=== PATIENT | female | born 1965 | race African-American/Black ===

== ENCOUNTER 2016-04-20 19:35 | Observation (INO) | payer OTHER ==
--- NOTE | 2016-04-20 19:48 | ER Document Report ---
ED Medical Screen (RME) - General Stated Complaint: BLOODY STOOL Notes: 50 yo female c/o rectal bleeding x 2 days. dark red with BM. + lower abdominal pain. + nausea, no vomiting. +hx/o HTN, but no meds x 5 yrs due to lack of insurance. BP noted to be elevated + headache. chest heaviness intermittantly. denies chest pain presently - Related Data Allergies/Adverse Reactions: Sulfa (Sulfonamide Antibiotics) Allergy (Verified 04/20/16 19:47) Physical Exam - Vital signs Vitals: Temp Pulse Resp BP Pulse Ox 98.2 F 83 16 232/111 H 100 04/20/16 19:42 04/20/16 19:42 04/20/16 19:42 04/20/16 19:42 04/20/16 19:42 Course - Vital Signs Vital signs: Temp Pulse Resp BP Pulse Ox 98.2 F 83 16 232/111 H 100 04/20/16 19:42 04/20/16 19:42 04/20/16 19:42 04/20/16 19:42 04/20/16 19:42
[2016-04-20 20:22] LABS: ABSOLUTE BASOPHILS # (AUTO) 0.1 10^3/uL (0.0-0.2); ABSOLUTE EOSINOPHILS # (AUTO) 0.4 10^3/uL (0.0-0.6); ABSOLUTE LYMPHOCYTES (AUTO) 3.5 10^3/uL (0.5-4.7); ABSOLUTE MONOCYTES (AUTO) 0.7 10^3/uL (0.1-1.4); BASOPHILS % (AUTO) 0.9 % (0-2); EOSINOPHILS % (AUTO) 4.7 % (0-6); HEMATOCRIT 39.5 % (36.0-47.0); HEMOGLOBIN 13.2 g/dL (12.0-15.5); HGB HCT DIFFERENCE 0.1; LYMPHOCYTES % (AUTO) 46.4 % (13-45); MEAN CORPUSCULAR HEMOGLOBIN 27.9 pg (27.0-33.4); MEAN CORPUSCULAR HGB CONC 33.3 g/dL (32.0-36.0); MEAN CORPUSCULAR VOLUME 84 fl (80-97); MONOCYTES % (AUTO) 8.9 % (3-13); RED BLOOD COUNT 4.71 10^6/uL (3.72-5.28); RED CELL DISTRIBUTION WIDTH 15.5 % (11.5-14.0); SEGMENTED NEUTROPHILS % (AUTO) 39.1 % (42-78); WHITE BLOOD COUNT 7.6 10^3/uL (4.0-10.5)
[2016-04-20 20:41] LABS: ALANINE AMINOTRANSFERASE 31 U/L (9-52); ALBUMIN 4.1 g/dL (3.5-5.0); ALKALINE PHOSPHATASE 111 U/L (38-126); ANION GAP 11 (5-19); ASPARTATE AMINO TRANSFERASE 26 U/L (14-36); BILIRUBIN,TOTAL 0.4 mg/dL (0.2-1.3); BLOOD UREA NITROGEN 19 mg/dL (7-20); CALCIUM 10.1 mg/dL (8.4-10.2); CARBON DIOXIDE 27 mmol/L (22-30); CHLORIDE 104 mmol/L (98-107); CREATININE RESULT 1.24 mg/dL (0.52-1.25); GLUCOSE 93 mg/dL (75-110); POTASSIUM 3.7 mmol/L (3.6-5.0); SODIUM 141.9 mmol/L (137-145); TOTAL PROTEIN 7.8 g/dL (6.3-8.2)
[2016-04-21] MEDS ORDERED: AMLODIPINE BESYLATE 10 MG TABLET PO ONE (01:03)
[2016-04-21] MEDS ORDERED: HYDROCHLOROTHIAZIDE 25 MG TABLET PO ONE (01:03)
--- NOTE | 2016-04-21 01:35 | ER Document Report ---
ED General - General Chief Complaint: Bloody Stools Stated Complaint: BLOODY STOOL Notes: Patient is a 50-year-old female presents with complaint of rectal bleeding. Patient says that over last 3 days she's had blood in her stool. She says initially her stool was red but now it is more stool and less blood. She's had some lower abdominal cramping. She says she's had the lower abdominal cramping since having her several years ago and is unsure if this cramping is the same or different. Patient has never had a colonoscopy. Patient also mentions that she has a history of hypertension. She is on no medications for 5 years. Recently she says that she's felt tired, dizzy, has had some intermittent headaches, has had some intermittent chest pain. TRAVEL OUTSIDE OF THE [place] IN LAST 30 DAYS: No - Related Data Allergies/Adverse Reactions: Sulfa (Sulfonamide Antibiotics) Allergy (Verified 04/20/16 19:47) Home Medications: Current Home Medications No Home Medications 04/21/16 [History] Past Medical History - Social History Smoking Status: Never Smoker Chew tobacco use (# tins/day): No Frequency of alcohol use: Rare Drug Abuse: None Family History: Reviewed & Not Pertinent Patient has suicidal ideation: No Patient has homicidal ideation: No Renal/ Medical History: Denies: Hx Peritoneal Dialysis Review of Systems - Review of Systems Notes: My Normal Review Basic REVIEW OF SYSTEMS: CONSTITUTIONAL : Denies fever, chills, or sweats. Denies recent illness. EENT: Denies eye, ear, throat, or mouth pain or symptoms. Denies nasal or sinus congestion. CARDIOVASCULAR: Intermittent chest pain. RESPIRATORY: Denies cough, cold, or chest congestion. Denies shortness of breath, difficulty breathing, or wheezing. GASTROINTESTINAL: Denies abdominal pain. Bloody stools GENITOURINARY: Denies difficulty urinating, painful urination, burning, frequency, or blood in urine. MUSCULOSKELETAL: Denies neck or back pain or joint pain or swelling. SKIN: Denies rash or skin lesions. HEMATOLOGIC : Denies easy bruising or bleeding. NEUROLOGICAL: Denies altered mental status or loss of consciousness. Has a headache. Denies weakness or paralysis or loss of use of either side. Denies problems with gait or speech. Denies sensory or motor loss. ALL OTHER SYSTEMS REVIEWED AND NEGATIVE. Physical Exam - Vital signs Vitals: Temp Pulse Resp BP Pulse Ox 98.2 F 83 16 232/111 H 100 04/20/16 19:42 04/20/16 19:42 04/20/16 19:42 04/20/16 19:42 04/20/16 19:42 - Notes Notes: General Appearance: Well nourished, alert, cooperative, no acute distress, no obvious discomfort. Well-appearing Vitals: reviewed, See vital signs table. Head: no swelling or tenderness to the head Eyes: PERRL, EOMI, Conjuctiva clear Mouth: No decreasd moisture Neck: Supple, no neck tenderness, No thyromegaly Lungs: No wheezing, No rales, No rhonci, No accessory muscle use, good air exchange bilaterally. Heart: Normal rate, Regular rythm, No murmur, no rub Abdomen: Normal BS, soft, No rigidity, No abdominal tenderness, No guarding, no rebound, no abdominal masses, no organomegaly Rectal: No gross blood. Light brown stool. No hemorrhoids. Extremities: strength 5/5 in all extremities, good pulses in all extremities, no swelling or tenderness in the extremities, no edema. Skin: warm, dry, appropriate color, no rash Neuro: speech clear, oriented x 3, normal affect, responds appropriately to questions. Course - Vital Signs Vital signs: Temp Pulse Resp BP Pulse Ox 97.7 F 79 18 137/83 H 97 04/22/16 04:01 04/22/16 04:01 04/22/16 04:01 04/22/16 04:01 04/22/16 04:01 - Laboratory Result Diagrams: 04/20/16 20:10 04/20/16 20:10 Laboratory results interpreted by me: 04/20/16 04/20/16 20:10 20:10 RDW 15.5 H Seg Neutrophils % 39.1 L Lymphocytes % 46.4 H Est GFR ( Amer) 55 L Est GFR (Non-Af Amer) 45 L - EKG Interpretation by Me Additional EKG results interpreted by me: 04/21/16 03:19 EKG is reviewed and interpreted by me. EKG shows normal sinus rhythm with rate of [address] segment elevation or depression. Some T-wave inversions in the lateral leads. This most likely is related to left ventricular hypertrophy. There is no old EKG available for comparison. - Transfer of Care Notes: 04/22/16 05:30 My main concern is the patient's continued hypertension. Also she has symptoms of the hypertension. I'm less concerned with her rectal bleeding. She has had decrease in amount of blood in her stool over last 3 days. She does have guaiac positive stool. Her hemoglobin is negative. She has minimal pain in her lower abdomen. Skin is negative. She will need a recent outpatient colonoscopy to further evaluate this. I did discuss this with her and she understands. My concern is of her hypertension. She is having some symptoms so she with a. I did give her some medications which has slowly decrease her blood pressure. Her blood pressure just prior to be calling the hospitalist was 190 systolic. This is a decrease with approximate 40 points systolically. I did discuss case with the hospital start reason the patient for hypertensive urgency. Dictation of this chart was performed using voice recognition software; therefore, there may be some unintended grammatical errors. Discharge - Discharge Clinical Impression: Hypertensive urgency, Hematochezia Condition: Stable Disposition: ADMITTED OBSERVATION Admitting Provider: Hospitalist Unit Admitted: Telemetry
[2016-04-21] MEDS ORDERED: NITROGLYCERIN 2% OINTMENT 1 GM PACKET TP ONE (04:21)
[2016-04-21] MEDS ORDERED: HYDRALAZINE HCL INJ/PF 20 MG/1 ML SDV IV PRN (05:57)
[2016-04-21] MEDS ORDERED: ONDANSETRON HCL INJ/PF 4 MG/2 ML SDV IV PRN (05:58)
[2016-04-21] MEDS ORDERED: ACETAMINOPHEN 325 MG TABLET PO PRN (05:58)
[2016-04-21] MEDS ORDERED: LACTULOSE SYRUP 20 GM/30 ML UDCUP PO ONE (06:15)
--- NOTE | 2016-04-21 06:41 | PDOC H&P ---
History of Present Illness Admission Date/PCP: 04/21/16 06:05 Patient complains of: Fatigue and shortness of breath History of Present Illness: MAULIK MCBRIDE is a 50 year old female with a past medical history of hypertension, obesity and constipation who had been her usual state of health until having an episode of bright red blood per rectum accompanied by hard stool prompting her to seek evaluation emergency room where she's found to have heme-negative stool, a normal hemoglobin and constipation on CT imaging. More notably however is her blood pressure of 239/122 and a history of fatigue and shortness of breath for several weeks. Patient has been off blood pressure medication over the last 5 years following the loss of health insurance. She receives hydrochlorothiazide, Nitropaste and Norvasc resulting in a blood pressure in the 140s systolic range she feels lightheaded and is placed in supine with removal of Nitropaste blood pressures reevaluated with a systolic pressure 160 and resolution of symptoms. she is referred to the hospitalist for observation. She denies new medications shortness of breath or chest pain currently. Past Medical History Cardiac Medical History: Reports: Hypertension Endocrine Medical History: Reports: Obesity Past Surgical History Past Surgical History: Reports: None Social History Information Source: Patient Lives with: Family Smoking Status: Never Smoker Hx Recreational Drug Use: No Drugs: None Hx Prescription Drug Abuse: No - Advance Directive Resuscitation Status: Full Code Family History Family History: CAD, Hypertension Parental Family History Reviewed: Yes Children Family History Reviewed: Yes Sibling(s) Family History Reviewed.: Yes Medication/Allergy Allergies/Adverse Reactions: Sulfa (Sulfonamide Antibiotics) Allergy (Verified 04/20/16 19:47) Review of Systems Constitutional: PRESENT: as per HPI, fatigue Eyes: ABSENT: visual disturbances Ears: ABSENT: hearing changes Cardiovascular: ABSENT: chest pain, dyspnea on exertion, edema, orthropnea, palpitations Respiratory: ABSENT: cough, hemoptysis Gastrointestinal: ABSENT: abdominal pain, constipation, diarrhea, hematemesis, hematochezia, nausea, vomiting Genitourinary: ABSENT: dysuria, hematuria Integumentary: ABSENT: rash, wounds Neurological: ABSENT: abnormal gait, abnormal speech, confusion, dizziness, focal weakness, syncope Psychiatric: ABSENT: anxiety, depression, homidical ideation, suicidal ideation Endocrine: ABSENT: cold intolerance, heat intolerance, polydipsia, polyuria Hematologic/Lymphatic: ABSENT: easy bleeding, easy bruising Physical Exam Vital Signs: Temp Pulse Resp BP Pulse Ox 98.2 F 83 16 232/111 H 100 04/20/16 19:42 04/20/16 19:42 04/20/16 19:42 04/20/16 19:42 04/20/16 19:42 General appearance: PRESENT: no acute distress, morbidly obese, well-developed, well-nourished Head exam: PRESENT: atraumatic, normocephalic Eye exam: PRESENT: conjunctiva pink, EOMI, PERRLA. ABSENT: scleral icterus Ear exam: PRESENT: normal external ear exam Mouth exam: PRESENT: moist, tongue midline Neck exam: ABSENT: carotid bruit, JVD, lymphadenopathy, thyromegaly Respiratory exam: PRESENT: clear to auscultation manny. ABSENT: rales, rhonchi, wheezes Cardiovascular exam: PRESENT: RRR. ABSENT: diastolic murmur, rubs, systolic murmur Pulses: PRESENT: normal dorsalis pedis pul Vascular exam: PRESENT: normal capillary refill GI/Abdominal exam: PRESENT: normal bowel sounds, soft. ABSENT: distended, guarding, mass, organolmegaly, rebound, tenderness Rectal exam: PRESENT: deferred Extremities exam: PRESENT: full ROM. ABSENT: calf tenderness, clubbing, pedal edema Neurological exam: PRESENT: alert, awake, oriented to person, oriented to place , oriented to time, oriented to situation, CN II-XII grossly intact. ABSENT: motor sensory deficit Psychiatric exam: PRESENT: appropriate affect, normal mood. ABSENT: homicidal ideation, suicidal ideation Skin exam: PRESENT: dry, intact, warm. ABSENT: cyanosis, rash Results Impressions: Abdomen/Pelvis CT 04/21/16 00:00 IMPRESSION: No acute or suspicious findings. Assessment & Plan - Diagnosis (1) Hypertensive urgency Is this a current diagnosis for this admission?: YesPlan: Continue Norvasc 10 mg by mouth daily, hydrochlorothiazide initiated in the emergency room. Patient states she has labile blood pressure which had been historically difficult to control. Given obesity I'm concerned for thyroid disorder will check TSH. (2) Constipation Is this a current diagnosis for this admission?: YesPlan: Lactulose and Colace (3) Internal hemorrhoid, bleeding Is this a current diagnosis for this admission?: YesPlan: Stool softener consider outpatient GI follow-up - Time Time Spent: 30 to 50 Minutes
[2016-04-21] MEDS: HEPARIN SOD (PORCINE) 5,000 UNIT/ML 1 ML SYRINGE SUBCUT SCH ×3 (06:57→21:04)
--- NOTE | 2016-04-21 08:26 | EKG REPORT ---
SEVERITY:- ABNORMAL ECG - SINUS RHYTHM PROBABLE LEFT ATRIAL ABNORMALITY LVH WITH SECONDARY REPOLARIZATION ABNORMALITY : Confirmed by: Efe Fierro MD 21-Apr-2016 08:26:19
[2016-04-21] MEDS: DOCUSATE SODIUM 100 MG CAPSULE PO SCH ×2 (09:11→17:11)
[2016-04-21] MEDS: AMLODIPINE BESYLATE 10 MG TABLET PO SCH (09:11)
[2016-04-21] MEDS ORDERED: KETOROLAC TROMETHAMINE INJ/PF 30 MG/1 ML SDV IV PRN ×2 (10:43→10:47)
--- NOTE | 2016-04-21 11:56 | PDOC PROGRESS REPORT ---
Subjective Progress Note for:: 04/21/16 Subjective:: Patient is seen on morning rounds. She is resting in bed. She complains of a headache. She states the nurse just fever Tylenol. She denies any nausea, abdominal pain or diarrhea. She denies any chest pain, shortness breath or dyspnea. She denies any fevers or chills. Rest of the review of systems are negative. Physical Exam Vital Signs: Temp Pulse Resp BP Pulse Ox 98.3 F 81 16 156/85 H 97 04/21/16 08:30 04/21/16 08:30 04/21/16 08:30 04/21/16 08:30 04/21/16 08:30 Intake & Output 04/20/16 04/21/16 04/22/16 06:59 06:59 06:59 Weight 105.5 kg 105.5 kg General appearance: PRESENT: no acute distress, obese, well-developed, well- nourished Head exam: PRESENT: atraumatic, normocephalic Eye exam: PRESENT: conjunctiva pink, EOMI, PERRLA. ABSENT: scleral icterus Ear exam: PRESENT: normal external ear exam Mouth exam: PRESENT: moist, tongue midline Neck exam: ABSENT: carotid bruit, JVD, lymphadenopathy, thyromegaly Respiratory exam: PRESENT: clear to auscultation manny. ABSENT: rales, rhonchi, wheezes Cardiovascular exam: PRESENT: RRR. ABSENT: diastolic murmur, rubs, systolic murmur Pulses: PRESENT: normal dorsalis pedis pul GI/Abdominal exam: PRESENT: normal bowel sounds, soft. ABSENT: distended, guarding, mass, organolmegaly, rebound, tenderness Rectal exam: PRESENT: deferred Extremities exam: PRESENT: full ROM. ABSENT: calf tenderness, clubbing, pedal edema Neurological exam: PRESENT: alert, awake, oriented to person, oriented to place , oriented to time, oriented to situation, CN II-XII grossly intact. ABSENT: motor sensory deficit Psychiatric exam: PRESENT: appropriate affect, normal mood. ABSENT: homicidal ideation, suicidal ideation Skin exam: PRESENT: dry, intact, warm. ABSENT: cyanosis, rash Results Impressions: Abdomen/Pelvis CT 04/21/16 00:00 IMPRESSION: No acute or suspicious findings. Assessment & Plan - Diagnosis (1) Hypertensive urgency Is this a current diagnosis for this admission?: YesPlan: Patient was started on amlodipine 10 mg blood pressure much improved. (2) Internal hemorrhoid, bleeding Is this a current diagnosis for this admission?: YesPlan: Patient has long history of chronic constipation. She has not had a colonoscopy. She has no bleeding at the present time (3) Constipation Qualifiers: Constipation type: chronic idiopathic constipation Qualified Code(s) : K59.04 - Chronic idiopathic constipation Is this a current diagnosis for this admission?: YesPlan: Continue colace and lactulose. (4) Morbid obesity with BMI of 40.0-44.9, adult Plan: Counseled on need for weight reduction through diet and exercise - Time Time Spent with patient: 25-34 minutes Critical Time spent with patient: 15-24 minutes Medications reviewed and adjusted accordingly: Yes Anticipated discharge: Home
[2016-04-21] MEDS: BENAZEPRIL HCL 20 MG TABLET PO SCH (21:04)
[2016-04-21] MEDS ORDERED: ZOLPIDEM TARTRATE 5 MG TABLET PO PRN (22:00)
[2016-04-22] MEDS: HEPARIN SOD (PORCINE) 5,000 UNIT/ML 1 ML SYRINGE SUBCUT SCH (05:04)
[2016-04-22] MEDS: BENAZEPRIL HCL 20 MG TABLET PO SCH (09:17)
[2016-04-22] MEDS: AMLODIPINE BESYLATE 10 MG TABLET PO SCH (09:18)
[2016-04-22] MEDS: DOCUSATE SODIUM 100 MG CAPSULE PO SCH (09:19)
--- NOTE | 2016-04-22 11:26 | PDOC DISCHARGE SUMMARY ---
General - Admit/Disc Date/PCP Admission Date/Primary Care Provider: 04/21/16 05:58 Discharge Date: 04/22/16 - Discharge Diagnosis (1) Hypertensive urgency Is this a current diagnosis for this admission?: YesSummary: Blood pressure maintained under 150 mmhg. Counseled on importance of taking medications. Follow up with [facility] (2) Internal hemorrhoid, bleeding Is this a current diagnosis for this admission?: YesSummary: No further bleeding since admission. Long history of chronic constipation (3) Constipation Is this a current diagnosis for this admission?: YesSummary: High fiber diet. Miralax daily (4) Morbid obesity with BMI of 40.0-44.9, adult Is this a current diagnosis for this admission?: YesSummary: Counseled on diet and exercise for weight loss - Additional Information Resuscitation Status: Full Code Discharge Diet: Regular Discharge Activity: Activity As Tolerated Home Medications: Acetaminophen [Tylenol 325 mg Tablet] 650 mg PO Q4HP PRN tablet 04/22/16 Benazepril HCl [Lotensin 20 mg Tablet] 20 mg PO Q12 #60 tablet 04/22/16 History of Present Illness Patient complains of: Fatigue and shortness of breath, History of Present Illness: MAULIK MCBRIDE is a 50 year old female who presents to [facility] ED on the evening of 04/20/2016, complaining of shortness of breath and fatigue over the last 2 weeks. She also notes she has had nicole blood after defecation on 2 different episodes. She does have a history of chronic constipation and internal hemorrhoids. It was noted upon presentation to the ER her blood pressure was extremely elevated at 246/112. She does have a history of essential hypertension she stopped taking medication 5 years ago when she lost her health insurance. She has not had routine healthcare in several years. She denied any nausea, vomiting, or diarrhea. She did complain of a headache which had been ongoing over the last 2 weeks as well. She underwent full workup by the ER provider including CT of the abdomen and pelvis which was unremarkable. She was referred to the hospitalist service for admission for hypertensive urgency. Hospital Course Hospital Course: Patient was admitted to the telemetry floor on observation status. She had blood pressure medication initiated which brought her pressure down to the 140s to 160s systolic. She had no further episodes of rectal bleeding overnight. This morning she complains of some dizziness but denies headache. Orthostatic vitals signs were obtained which show blood pressure sitting 136/63, standing 151/70. She was counseled on importance of being compliant with medications. Medications are available on [employer] $4 list. Patient will follow-up with [facility]. Physical Exam Vital Signs: Temp Pulse Resp BP Pulse Ox 98 F 92 16 151/81 H 99 04/22/16 10:40 04/22/16 10:40 04/22/16 10:40 04/22/16 10:40 04/22/16 10:40 Intake & Output 04/21/16 04/22/16 04/23/16 06:59 06:59 06:59 Intake Total 905 Output Total 1600 Balance -695 Weight 105.5 kg 105.8 kg General appearance: PRESENT: no acute distress, morbidly obese, well-developed, well-nourished Head exam: PRESENT: atraumatic, normocephalic Eye exam: PRESENT: conjunctiva pink, EOMI, PERRLA. ABSENT: scleral icterus Ear exam: PRESENT: normal external ear exam Mouth exam: PRESENT: moist, tongue midline Neck exam: ABSENT: carotid bruit, JVD, lymphadenopathy, thyromegaly Respiratory exam: PRESENT: clear to auscultation manny. ABSENT: rales, rhonchi, wheezes Cardiovascular exam: PRESENT: RRR. ABSENT: diastolic murmur, rubs, systolic murmur Pulses: PRESENT: normal dorsalis pedis pul Vascular exam: PRESENT: normal capillary refill GI/Abdominal exam: PRESENT: normal bowel sounds, soft. ABSENT: distended, guarding, mass, organolmegaly, rebound, tenderness Rectal exam: PRESENT: deferred Extremities exam: PRESENT: full ROM. ABSENT: calf tenderness, clubbing, pedal edema Musculoskeletal exam: PRESENT: ambulatory, normal inspection Neurological exam: PRESENT: alert, awake, oriented to person, oriented to place , oriented to time, oriented to situation, CN II-XII grossly intact. ABSENT: motor sensory deficit Psychiatric exam: PRESENT: appropriate affect, normal mood. ABSENT: homicidal ideation, suicidal ideation Skin exam: PRESENT: dry, intact, warm. ABSENT: cyanosis, rash Results Impressions: Abdomen/Pelvis CT 04/21/16 00:00 IMPRESSION: No acute or suspicious findings. Qualifiers PATEINT BEING DISCHARGED WITH ANY OF THE FOLLOWING DIAGNOSIS?: No Plan Discharge Plan: Home with family Time Spent: Less than 30 Minutes
[2016-04-22 12:58] VITALS: BP 172/93
== END 2016-04-22 12:50 | disposition home or self-care (01) ==
LOC: ER 19:35 → EH 04-21 05:58 → UNDOADMOB 04-21 06:05 → EH 04-21 06:05 → 4S 04-21 08:21
PROVIDERS: ADMIT Internal Medicine; ATTEND Internal Medicine
DX: I16.0 Hypertensive urgency (principal); I10 Essential (primary) hypertension; K64.8 Other hemorrhoids; K59.00 Constipation, unspecified; E66.01 Morbid (severe) obesity due to excess calories; Z68.41 Body mass index [BMI] 40.0-44.9, adult
CPT/HCPCS: 93005; 99285; 36415 ×2; 84443; 85025; 82272; 80053; 84484; 74178; 93010; J1644 ×2; J0360; J1885

== ENCOUNTER → 2016-04-25 | Outpatient (CLI) | payer OTHER ==
[2016-04-26 08:32] LABS: ABSOLUTE EOSINOPHILS # (AUTO) 0.2 10^3/uL (0.0-0.6); ABSOLUTE LYMPHOCYTES (AUTO) 2.3 10^3/uL (0.5-4.7); ABSOLUTE MONOCYTES (AUTO) 0.5 10^3/uL (0.1-1.4); ABSOLUTE NEUT (AUTO) 1.6 10^3/uL (1.7-8.2); BASOPHILS % (AUTO) 1.1 % (0-2); EOSINOPHILS % (AUTO) 4.8 % (0-6); HEMATOCRIT 40.1 % (36.0-47.0); HEMOGLOBIN 13.8 g/dL (12.0-15.5); HGB HCT DIFFERENCE 1.3; LYMPHOCYTES % (AUTO) 48.8 % (13-45); MEAN CORPUSCULAR HEMOGLOBIN 28.6 pg (27.0-33.4); MEAN CORPUSCULAR HGB CONC 34.5 g/dL (32.0-36.0); MEAN CORPUSCULAR VOLUME 83 fl (80-97); MONOCYTES % (AUTO) 11.6 % (3-13); RED BLOOD COUNT 4.84 10^6/uL (3.72-5.28); RED CELL DISTRIBUTION WIDTH 15.4 % (11.5-14.0); SEGMENTED NEUTROPHILS % (AUTO) 33.7 % (42-78); WHITE BLOOD COUNT 4.6 10^3/uL (4.0-10.5)
[2016-04-26 08:56] LABS: ALANINE AMINOTRANSFERASE 30 U/L (9-52); ALBUMIN 4.4 g/dL (3.5-5.0); ALKALINE PHOSPHATASE 109 U/L (38-126); ANION GAP 14 (5-19); ASPARTATE AMINO TRANSFERASE 27 U/L (14-36); BILIRUBIN,TOTAL 0.6 mg/dL (0.2-1.3); BLOOD UREA NITROGEN 23 mg/dL (7-20); CALCIUM 10.4 mg/dL (8.4-10.2); CARBON DIOXIDE 26 mmol/L (22-30); CHLORIDE 101 mmol/L (98-107); CHOLESTEROL 243.29 mg/dL (0-200); Direct HDL 64 mg/dL (>40); GLUCOSE 96 mg/dL (75-110); POTASSIUM 4.1 mmol/L (3.6-5.0); SODIUM 140.7 mmol/L (137-145); TOTAL PROTEIN 8.2 g/dL (6.3-8.2); TRIGLYCERIDES 103 mg/dL (<150)
[2016-04-26 09:06] LABS: DIRECT LDL 139 mg/dL (<100)
== END ==
LOC: OD 14:10
DX: K62.5 Hemorrhage of anus and rectum (principal)
CPT/HCPCS: 36415; 80053; 80061; 82306; 83036; 84443; 85025

== ENCOUNTER 2018-04-06 12:16 | Emergency (ER) | payer BC, MEDICAID ==
--- NOTE | 2018-04-06 12:51 | ER Document Report ---
ED Medical Screen (RME) - General Chief Complaint: Dizziness Stated Complaint: DIZZINESS Time Seen by Provider: 04/06/18 12:49 Primary Care Provider: MAURA FAN [Primary Care Provider] - Follow up as needed Mode of Arrival: Ambulatory Information source: Patient Notes: This is a 52-year-old female who presents to the emergency room with acute vertigo. Patient states she was home at the time when she experienced sudden onset of acute spinning. She states that the spinning has stopped and she is just dizzy at this point. Patient does give a history of episodes of "falling out" (3 times in the past 2 months). She is followed by [facility] and had a CT of the head yesterday (not in this hospital) as well as a recent Holter monitor. TRAVEL OUTSIDE OF THE [place] IN LAST 30 DAYS: No - Related Data Allergies/Adverse Reactions: Sulfa (Sulfonamide Antibiotics) Allergy (Verified 04/06/18 12:34) Past Medical History - Past Medical History Cardiac Medical History: Reports: Hx Hypertension Renal/ Medical History: Denies: Hx Peritoneal Dialysis Physical Exam - Vital signs Vitals: Temp Pulse Resp BP Pulse Ox 98.2 F 91 16 156/88 H 100 04/06/18 12:34 04/06/18 12:34 04/06/18 12:34 04/06/18 12:34 04/06/18 12:34 Course - Vital Signs Vital signs: Temp Pulse Resp BP Pulse Ox 98.2 F 91 16 156/88 H 100 04/06/18 12:34 04/06/18 12:34 04/06/18 12:34 04/06/18 12:34 04/06/18 12:34 Doctor's Discharge - Discharge Referrals: MAURA FAN [Primary Care Provider] - Follow up as needed
[2018-04-06 13:40] LABS: ABSOLUTE BASOPHILS # (AUTO) 0.1 10^3/uL (0.0-0.2); ABSOLUTE EOSINOPHILS # (AUTO) 0.4 10^3/uL (0.0-0.6); ABSOLUTE LYMPHOCYTES (AUTO) 3.4 10^3/uL (0.5-4.7); ABSOLUTE MONOCYTES (AUTO) 0.4 10^3/uL (0.1-1.4); ABSOLUTE NEUT (AUTO) 2.9 10^3/uL (1.7-8.2); EOSINOPHILS % (AUTO) 5.6 % (0-6); HEMATOCRIT 42.9 % (36.0-47.0); HEMOGLOBIN 15.1 g/dL (12.0-15.5); LYMPHOCYTES % (AUTO) 47.4 % (13-45); MEAN CORPUSCULAR HGB CONC 35.1 g/dL (32.0-36.0); MEAN CORPUSCULAR VOLUME 85 fl (80-97); MONOCYTES % (AUTO) 6.2 % (3-13); PLATELET COUNT 463 10^3/uL (150-450); RED BLOOD COUNT 5.03 10^6/uL (3.72-5.28); RED CELL DISTRIBUTION WIDTH 13.7 % (11.5-14.0); SEGMENTED NEUTROPHILS % (AUTO) 39.8 % (42-78); TOTAL CELLS COUNTED % (AUTO) 100 %; WHITE BLOOD COUNT 7.2 10^3/uL (4.0-10.5)
[2018-04-06 14:08] LABS: ALANINE AMINOTRANSFERASE 30 U/L (9-52); ALBUMIN 4.8 g/dL (3.5-5.0); ALKALINE PHOSPHATASE 99 U/L (38-126); ANION GAP 12 (5-19); ASPARTATE AMINO TRANSFERASE 36 U/L (14-36); BILIRUBIN,DIRECT 0.3 mg/dL (0.0-0.4); BILIRUBIN,TOTAL 0.5 mg/dL (0.2-1.3); BLOOD UREA NITROGEN 19 mg/dL (7-20); CALCIUM 10.1 mg/dL (8.4-10.2); CARBON DIOXIDE 28 mmol/L (22-30); CHLORIDE 103 mmol/L (98-107); GLUCOSE 124 mg/dL (75-110); SODIUM 143.4 mmol/L (137-145); TOTAL PROTEIN 8.7 g/dL (6.3-8.2)
[2018-04-06] MEDS ORDERED: MECLIZINE HCL 25 MG TABLET PO ONE (15:27)
--- NOTE | 2018-04-06 16:13 | ER Document Report ---
ED General - General Chief Complaint: Dizziness Stated Complaint: DIZZINESS Time Seen by Provider: 04/06/18 12:49 Primary Care Provider: JAZZ JASSO NP [COMMUNITY BASED STAFF] - Follow up in 3-5 days Mode of Arrival: Ambulatory Notes: Patient is a 52-year-old female who presents emergency department with a chief complaint of dizziness. She stated that she felt dizzy this morning and felt like the room was spinning. She states that she has had 3 falls in the past 2 months and has seen her primary care provider in regards to this issue. She had a CT scan of the head yesterday by her primary care and also had a Holter monitor placed. She states she does not know the results of her CT or her Holter monitor. She denies any weakness, numbness, or tingling. She denies any facial droop. TRAVEL OUTSIDE OF THE [place] IN LAST 30 DAYS: No - Related Data Allergies/Adverse Reactions: Sulfa (Sulfonamide Antibiotics) Allergy (Verified 04/06/18 12:34) Past Medical History - General Information source: Patient - Social History Smoking Status: Unknown if Ever Smoked Family History: Reviewed & Not Pertinent Patient has suicidal ideation: No Patient has homicidal ideation: No - Past Medical History Cardiac Medical History: Reports: Hx Hypertension Renal/ Medical History: Denies: Hx Peritoneal Dialysis Review of Systems - Review of Systems Notes: REVIEW OF SYSTEMS: CONSTITUTIONAL : Denies recent illness. Denies recent unintentional weight loss. Denies fever, chills, or sweats. EENT: See HPI. CARDIOVASCULAR: Denies chest pain. RESPIRATORY: Denies shortness of breath, cough, congestion, difficulty breathing, or wheezing. GASTROINTESTINAL: Denies nausea, vomiting, and diarrhea. Denies abdominal pain. Denies constipation. GENITOURINARY: Denies difficulty urinating, burning, blood in urine, urgency or frequency. MUSCULOSKELETAL: Denies neck and back pain. Denies joint pain or swelling. SKIN: Denies rash, itchiness, or lesions HEMATOLOGIC : Denies easy bruising or bleeding. LYMPHATIC: Denies swollen, painful, enlarged glands. NEUROLOGICAL: See HPI. PSYCHIATRIC: Denies stress, anxiety, alteration in sleep patterns, or depression. All other systems reviewed and negative. Physical Exam - Vital signs Vitals: Temp Pulse Resp BP Pulse Ox 98.2 F 91 16 156/88 H 100 04/06/18 12:34 04/06/18 12:34 04/06/18 12:34 04/06/18 12:34 04/06/18 12:34 - Notes Notes: PHYSICAL EXAMINATION: GENERAL: Appears well, healthy, well-nourished, no acute distress. HEAD: Normocephalic, atraumatic. EYES: PERRL, conjunctiva normal, all extraocular movements intact, sclera nonicteric, mild nystagmus noted (associated dizziness with nystagmus). ENT: Moist mucous membranes. Cerumen impaction in right external auditory canal. Cerumen noted to left external auditory canal, but able to visualize tempanic membrane. NECK: Supple, no noticeable swelling, redness, rash. Normal range of motion. LUNGS: Equal breath sounds bilaterally and clear to auscultation. No wheezes rales or rhonchi. CARDIOVASCULAR: S1-S2, regular rate, regular rhythm. Radial pulses 2+, normal. ABDOMEN: Normoactive bowel sounds. Soft, nontender, no guarding, no rebound tenderness, and no masses palpated. EXTREMITIES: Normal strength and range of motion, no pitting or edema. No cyanosis. NEUROLOGICAL: Moves all extremities upon command. Strength 5/5 in all ext remities. PSYCH: Normal mood, normal affect. SKIN: Warm, dry. No rash, lesions, ulcerations noted. Normal skin turgor. Course - Re-evaluation Re-evalutation: 04/06/18 16:15 The patient states that the meclizine has not helped. Her labs are all normal. I suspect she is having benign paroxysmal positional vertigo. The CT of her head that was done by her primary care provider did not show evidence of sinusitis, acute stroke, or any other etiology at this time. She does have some nystagmus noted on exam, with associated dizziness. Other cranial nerves are intact. 04/06/18 16:37 The patient was unsure as to which way the room was spinning when she had her episode of vertigo. The Audrey's maneuver was to her right side. She tolerated the procedure well. If she does not have relief of her symptoms, the other side will be done. 04/06/18 17:15 Patient states she feels better after the Audrey's maneuver and has a little bit of dizziness, but not as much as she had before. She also has a cerumen impaction noted to her right ear. I was able to get a significant amount out of her right ear using a curette, but not all of it. Colase will be placed and she will place peroxide to the right ear. She also has some edema and pain the area. She will be started on ciprodex. Verbal discharge instructions were given to the patient. They verbalized understanding. They are stable for discharge. - Vital Signs Vital signs: Temp Pulse Resp BP Pulse Ox 98.0 F 81 16 155/90 H 99 04/06/18 17:50 04/06/18 17:50 04/06/18 17:50 04/06/18 17:50 04/06/18 17:50 - Laboratory Result Diagrams: 04/06/18 13:05 04/06/18 13:05 Laboratory results interpreted by me: 04/06/18 04/06/18 13:05 13:05 Plt Count 463 H Seg Neutrophils % 39.8 L Lymphocytes % 47.4 H Est GFR (Non-Af Amer) 55 L Glucose 124 H Total Protein 8.7 H Discharge - Discharge Clinical Impression: Benign paroxysmal positional vertigo Qualifiers: Laterality: right Qualified Code(s): H81.11 - Benign paroxysmal vertigo, right ear Cerumen impaction Qualifiers: Laterality: right Qualified Code(s): H61.21 - Impacted cerumen, right ear Otitis externa Qualifiers: Otitis externa type: noninfectious Noninfectious otitis externa type: other type Chronicity: acute Laterality: right Qualified Code(s): H60.591 - Other noninfective acute otitis externa, right ear Condition: Stable Disposition: HOME, SELF-CARE Instructions: Dizziness ([facility]), Vertigo ([facility]) Additional Instructions: You were seen today in the emergency department for dizziness. The Audrey's maneuver was performed to help you with your dizziness. If you continue to have symptoms, may return to the emergency department or see your primary care provider. You may continue to have some dizziness but it should get better within the next couple of days. You also have a wax buildup in your right ear. A medication called Colace was put in the area to help soften your earwax. When you get home, place peroxide in your ear and let it sit for 10 minutes to help soften the earwax. After it is done, let the peroxide drain and clean the outer ear with a washcloth. You have been given Flonase, medication to help with inflammation in your nose. Please place 1 spray to each nostril twice a day. He also been given a prescription for Zyrtec, medication to help with your allergies. Take 1 tablet every day. You have been given antibiotic and steroid eardrops for your right ear. Place 4 drops in the right ear twice a day for 7 days. If you fall again, develop weakness, numbness, and tingling, or have any symptoms that are worrisome to you, please return to the emergency department. Prescriptions: Cetirizine HCl [Zyrtec 10 mg Tablet] 1 tab PO DAILY #30 tablet Fluticasone Propionate [Flonase Nasal Grant 50 Mcg/Grant 16 gm] 1 spray NASL Q12 #1 inhaler Referrals: JAZZ JASSO NP [COMMUNITY BASED STAFF] - Follow up in 3-5 days
[2018-04-06] MEDS ORDERED: DOCUSATE SODIUM 100 MG CAPSULE RT_EAR ONE (16:24)
[2018-04-06] MEDS ORDERED: CIPROFLOXACIN HCL/DEXAMETH OTIC DROP 7.5 ML AD ONE (17:39)
[2018-04-06 17:53] VITALS: BP 155/90
== END 2018-04-06 17:53 | disposition home or self-care (01) ==
LOC: ER 12:16
DX: H81.11 Benign paroxysmal vertigo, right ear (principal); H60.591 Other noninfective acute otitis externa, right ear; H61.23 Impacted cerumen, bilateral; I10 Essential (primary) hypertension; Z88.2 Allergy status to sulfonamides
CPT/HCPCS: 99284; 36415; 85025; 80053; J3490

== ENCOUNTER 2019-09-02 09:59 | Day surgery (SDC) | payer BC ==
[2019-08-29 10:14] LABS: APPEARANCE,URINE CLEAR; BILIRUBIN,URINE NEGATIVE (NEGATIVE); COLOR,URINE YELLOW; GLUCOSE, URINE NEGATIVE (NEGATIVE); KETONES,URINE NEGATIVE (NEGATIVE); LEUKOCYTE ESTERASE,URINE NEGATIVE (NEGATIVE); NITRITE,URINE NEGATIVE (NEGATIVE); PROTEIN,URINE NEGATIVE (NEGATIVE); URINE SPECIFIC GRAVITY 1.009
[2019-08-29 10:15] LABS: HEMATOCRIT 46.4 % (36.0-47.0); MEAN CORPUSCULAR HEMOGLOBIN 30.2 pg (27.0-33.4); MEAN CORPUSCULAR HGB CONC 34.5 g/dL (32.0-36.0); MEAN CORPUSCULAR VOLUME 88 fl (80-97); PLATELET COUNT 367 10^3/uL (150-450); RED BLOOD COUNT 5.29 10^6/uL (3.72-5.28); RED CELL DISTRIBUTION WIDTH 13.9 % (11.5-14.0)
[2019-08-29 10:49] LABS: ALBUMIN 4.5 g/dL (3.5-5.0); ALKALINE PHOSPHATASE 90 U/L (38-126); ANION GAP 10 (5-19); ASPARTATE AMINO TRANSFERASE 37 U/L (14-36); BILIRUBIN,DIRECT 0.1 mg/dL (0.0-0.4); BILIRUBIN,TOTAL 0.6 mg/dL (0.2-1.3); BLOOD UREA NITROGEN 25 mg/dL (7-20); CALCIUM 10.4 mg/dL (8.4-10.2); CARBON DIOXIDE 25 mmol/L (22-30); CHLORIDE 104 mmol/L (98-107); GLUCOSE 131 mg/dL (75-110); POTASSIUM 3.9 mmol/L (3.6-5.0); TOTAL PROTEIN 8.1 g/dL (6.3-8.2)
[~2019-09-02 09:59] MED LIST: CEFAZOLIN 1 GM/D5W RTU 1 GM/50 ML RTUPB IV PRN; DEXAMETHASONE SOD PHOSPHATE INJ 4 MG/1 ML VIAL ONE; FENTANYL CITRATE INJ/PF 100 MCG/2 ML AMPUL ONE; MIDAZOLAM 2 MG/2 ML INJ ONE; ONDANSETRON HCL INJ/PF 4 MG/2 ML SDV ONE; PROPOFOL INJ 200 MG/20 ML VIAL IV ONE; SUCCINYLCHOLINE CHLORIDE INJ 200 MG/10 ML VIAL ONE
[2019-09-02] MEDS ORDERED: CEFAZOLIN 1 GM/D5W RTU 1 GM/50 ML RTUPB IV ONE (10:42)
[2019-09-02] MEDS ORDERED: FENTANYL CITRATE INJ/PF 100 MCG/2 ML AMPUL IV PRN ×3 (12:08)
[2019-09-02] MEDS ORDERED: PROMETHAZINE HCL INJ 25 MG/1 ML VIAL IV PRN ×2 (12:08)
[2019-09-02] MEDS ORDERED: DIPHENHYDRAMINE HCL 50 MG/ML VIAL IV PRN (12:08)
[2019-09-02] MEDS ORDERED: ONDANSETRON HCL INJ/PF 4 MG/2 ML SDV IV PRN (12:08)
[2019-09-02] MEDS ORDERED: MORPHINE SULFATE 10 MG/ML INJ IV PRN (12:08)
[2019-09-02] MEDS ORDERED: MEPERIDINE HCL/PF INJ 25 MG/1 ML DISP.SYRIN IV PRN (12:08)
--- NOTE | 2019-09-02 12:24 | Operative Report ---
Operative Report DATE OF SURGERY: 09/02/19 PREOPERATIVE DIAGNOSIS: Post-menopausal bleeding POSTOPERATIVE DIAGNOSIS: same OPERATION: Dilatation & Curettage SURGEON: RAVINDER PENNINGTON ANESTHESIA: GA TISSUE REMOVED OR ALTERED: Endometrium COMPLICATIONS: None ESTIMATED BLOOD LOSS: 10 cc INTRAOPERATIVE FINDINGS: Normal female pelvic anatomy PROCEDURE: Patient was brought into the OR and placed on the table in a supine position. Patient was then inducted under general anesthesia. She was repositioned in a dorsolithotomy position. She was prepped and draped in sterile fashion. The bladder was drained of approximately 25 cc of clear yellow urine. Pelvic under anesthesia was then performed. A bivalve vaginal speculum was inserted and opened up. The cervix grasped and essentially with a single-tooth tenaculum. It was dilated to #8 Hegar dilator. The #8 suction catheter was gently inserted through the cervix and carried to the top of the fundus. The suction was then enabled and with a gentle rotating movement the catheter was removed. This procedure was repeated x2. The suction catheter was then purged with normal saline. A medium size curette was then inserted through the cervix and the uterine cavity was curetted. There was no further tissue return. This terminated the procedure. Tenaculum was removed. Evidence of active bleeding. Vaginal speculum was removed. Anesthesia was discontinued and the patient was placed back in a supine position. Patient tolerated the procedure well. Negative for blood loss. Patient was transferred to the recovery room in satisfactory condition. Dr. Ravinder Pennington dictating on 09 01.
[2019-09-02] MEDS ORDERED: MORPHINE SULFATE 10 MG/ML INJ ONE (12:41)
[2019-09-02 16:40] VITALS: BP 175/97
== END 2019-09-02 15:00 | disposition home or self-care (01) ==
LOC: OROUT 09:59
PROVIDERS: ATTEND Obstetrics & Gynecology
DX: N95.0 Postmenopausal bleeding (principal); Z03.818 Encounter for observation for suspected exposure to other biological agents ruled out; Z88.2 Allergy status to sulfonamides; Z79.899 Other long term (current) drug therapy; Z79.84 Long term (current) use of oral hypoglycemic drugs; I10 Essential (primary) hypertension
CPT/HCPCS: 58120; 36415; 82962; 85027; 87635; 80053; 81001; 88305 ×2; J2250; J0690; J1100; J3010; J2270; J2405; J2704; C9803; 940; J0330

== ENCOUNTER → 2019-10-14 | Outpatient (CLI) | payer BC ==
--- NOTE | 2019-10-14 16:11 | RADIOLOGY REPORT (SQ) ---
EXAM DESCRIPTION: VENOUS UNILATERAL LOWER IMAGES COMPLETED DATE/TIME: 10/14/2019 3:43 pm REASON FOR STUDY: RLE PAIN/SWELLING COMPARISON: None. TECHNIQUE: Dynamic and static velarde scale and color images acquired of the right leg venous system. S elected spectral images acquired with additional compression and augmentation maneuvers. The contrala teral common femoral vein and saphenofemoral junction were also imaged. Images stored on PACS. LIMITATIONS: None. FINDINGS: COMMON FEMORAL: Normal phasicity, compression and augmentation. No visualized echogenic ma terial on velarde scale. No defects on color images. FEMORAL: Normal compression and augmentation. No visualized echogenic material on velarde scale. No defe cts on color images. POPLITEAL: Normal compression, augmentation. No visualized echogenic material on velarde scale. No defec ts on color images. CALF VESSELS: The peroneal vein was not visualized sonographically. Normal compression, augmentatio n. No visualized echogenic material on velarde scale. No defects on color images. GSV and SSV: Normal compression, augmentation. No visualized echogenic material on velarde scale. No def ects on color images. ANY DEEP VENOUS INSUFFICIENCY: Not evaluated. ANY EVIDENCE OF POPLITEAL CYST: No. OTHER: No other significant finding. CONTRALATERAL COMMON FEMORAL VEIN: Normal phasicity, compression and augmentation. No visualized echogenic material on velarde scale. No de fects on color images. IMPRESSION: 1. NO EVIDENCE OF DVT OR SVT IN THE RIGHT LEG. TECHNICAL DOCUMENTATION: JOB ID: [id number] 2010 [employer]- All Rights Reserved Reading location - IP/workstation name: [email or web address]
== END ==
LOC: SP 14:57
PROVIDERS: ATTEND Nurse Practitioner Family
DX: M79.661 Pain in right lower leg (principal); R22.41 Localized swelling, mass and lump, right lower limb
CPT/HCPCS: 93971